=== PATIENT | male | born 1970 | race Caucasian/White ===

== ENCOUNTER → 2019-08-12 | Outpatient (CLI) | payer OTHER, BC ==
--- NOTE | 2019-08-12 11:30 | REP ---
Left hand series: Four views. History: Pain in the left hand. Injury to second through fourth digits. Findings: Four views of the left hand demonstrate overall normal mineralization. No fractures seen. There is soft tissue swelling and irregularity at the index, long, and ring fingers. No opaque foreign body is seen. Impression: No fracture or opaque foreign body noted. Soft tissue swelling and irregularity of the index, long, and ring fingers. Electronically Signed by Abel Naylor MD 08/12/2019 11:21 A
== END ==
LOC: M ADAMS 11:00
PROVIDERS: ATTEND Physician Assistant Medical
DX: M79.642 Pain in left hand (principal)

== ENCOUNTER → 2021-07-28 | Outpatient (CLI) | payer BC ==
--- NOTE | 2021-07-28 14:43 | REP ---
INDICATION: ABD PAIN, R/O OBSTRUCTION/MASS. COMPARISON: None. TECHNIQUE: Real-time sonographic evaluation of the testicles with Doppler FINDINGS: The right testicle measures 4 x 2.1 x 2.9 cm and left measures 3.5 x 2.2 x 2.9 cm. The testicular parenchymal echo pattern and vascular pattern is within normal limits bilaterally. There is no evidence of a hydrocele or varicocele. Incidental bilateral spermatoceles are identified each side measuring approximately 3 mm. The right testicular RI is 0.55 and the left is 0.5. IMPRESSION: Within normal limits <Electronically signed by Iggy Hernandez > 07/28/21 [id number]
--- NOTE | 2021-07-28 14:50 | REP ---
INDICATION: ABD PAIN, R/O OBSTRUCTION/MASS. COMPARISON: None. TECHNIQUE: Real-time sonographic evaluation of the kidneys with Doppler FINDINGS: Multiple ultrasonographic images of the right kidney show the right kidney to measure 13.9 x 6 x 6.6 cm. The renal cortical echotexture is unremarkable. There are no masses. There is good corticomedullary differentiation. There is no hydronephrosis. There are no perinephric fluid collections. Multiple ultrasonographic images of the left kidney show the left kidney to measure 11.7 x 5.5 x 5.8 cm. The renal cortical echotexture is unremarkable. There are no masses. There is good corticomedullary differentiation. There is no hydronephrosis. There are no perinephric fluid collections. IMPRESSION: Unremarkable renal ultrasonography. <Electronically signed by Iggy Hernandez > 07/28/21 [id number]
== END ==
LOC: M RAD 13:14
PROVIDERS: ATTEND Nurse Practitioner Family
DX: R10.9 Unspecified abdominal pain (principal)

== ENCOUNTER → 2021-08-11 | Outpatient (CLI) | payer BC ==
[~2021-08-11] MED LIST: GASTROGRAFIN SOLUTION 30ML (Q9963) As Ordered ONE; ISOVUE-370 76% 100ML VIAL As Ordered ONE
--- NOTE | 2021-08-12 08:46 | REP ---
INDICATION: DIVERTICULITIS VS ABSCESS. COMPARISON: None TECHNIQUE: Axial contrast-enhanced images from the lung bases to the pubic symphysis using oral and 100 cc Isovue 370 intravenous contrast material. Coronal and sagittal reformations obtained. This CT examination was performed using the following dose reduction techniques: Automated exposure control, adjustment of mA and/or kv according to the patient's size, and the use of iterative reconstruction technique. FINDINGS: Liver, spleen, pancreas, gallbladder, bilateral adrenal glands and kidneys are normal. Incidental 1.7 cm right renal hypodensity most compatible with cyst. The enteric system including stomach, small, and large bowel appears normal. No evidence for obstruction or acute inflammatory process. Normal terminal ileum and appendix are identified in the right lower quadrant. Few scattered sigmoid diverticula noted without acute diverticulitis. Pelvis demonstrates normal bladder and age-appropriate prostate/seminal vesicles. Small fat containing inguinal hernias noted (left greater than right). No ascites. No free air. No intraperitoneal or retroperitoneal adenopathy. Abdominal aorta and vasculature appear normal. Musculoskeletal structures demonstrate degenerative changes including chronic grade 1 L5 spondylolysis and spondylolisthesis with associated discogenic disease. IMPRESSION: 1. No acute abdominopelvic pathology appreciated. 2. Few scattered sigmoid diverticula. No evidence for acute diverticulitis. 3. Chronic L5 spondylolysis and spondylolisthesis. 4. Small fat containing inguinal hernias. 5. Incidental right renal hypodensity most compatible with cyst. However, this was not identified on recent renal ultrasound dated 07/28/2021 and re-evaluation by ultrasound to confirm cyst rather than mass is recommended. <Electronically signed by Devonte Griffin > 08/12/21 [id number]
== END ==
LOC: M RAD 15:23
PROVIDERS: ATTEND Nurse Practitioner Family
DX: R10.30 Lower abdominal pain, unspecified (principal); K57.30 Diverticulosis of large intestine without perforation or abscess without bleeding; M43.16 Spondylolisthesis, lumbar region; N28.89 Other specified disorders of kidney and ureter
CPT/HCPCS: 74177; Q9963; Q9967

== ENCOUNTER → 2022-03-24 | Outpatient (CLI) | payer BC | LOC: M RAD 13:03 | PROVIDERS: ATTEND Nurse Practitioner Family | DX: D41.01 Neoplasm of uncertain behavior of right kidney (principal) ==

== ENCOUNTER → 2023-06-08 | Outpatient (CLI) | payer BC ==
[~2023-06-08] MED LIST changes: -GASTROGRAFIN SOLUTION 30ML (Q9963) As Ordered ONE
== END ==
LOC: M RAD 16:00
PROVIDERS: ATTEND Urology
DX: N28.1 Cyst of kidney, acquired (principal)
CPT/HCPCS: 74170; Q9967